=== PATIENT | female | born 1940 | race Caucasian/White ===

== ENCOUNTER 2018-09-05 06:06 | Inpatient (IN) | payer MEDICARE, BC ==
[2018-08-24 09:06] LABS: ABSOLUTE EOSINOPHILS 0.2 thou/uL (0.0-0.7); ABSOLUTE LYMPHOCYTES 1.7 thou/uL (0.8-5.3); ABSOLUTE MONOCYTES 0.6 thou/uL (0.0-1.2); ABSOLUTE NEUTROPHILS 5.8 thou/uL (1.6-8.1); BASOPHILS 0.5 %; EOSINOPHILS 2.8 %; HEMATOCRIT 42.6 % (37.0-47.0); HEMOGLOBIN 14.3 gm/dL (12.0-15.0); LYMPHOCYTES 20.7 %; MCH 29.4 pg (26.0-34.0); MCHC 33.5 g/dL (28.0-37.0); MCV 87.7 fL (80.0-100.0); MPV 8.7 fl. (7.2-11.1); NUCLEATED RBCS 0 /100WBC; PLATELET COUNT* 250 thou/uL (150-400); RBC 4.86 mil/uL (4.20-5.00); RDW-CV 13.4 % (10.5-14.5); WBC 8.4 thou/uL (4.0-11.0)
[2018-08-24 09:12] LABS: APTT 25.8 Seconds (25.0-31.3); INR 0.9; PROTIME 9.7 Seconds (9.20-11.50)
[2018-08-24 09:19] LABS: ALBUMIN 3.6 g/dL (3.4-5.0); CALCIUM 8.9 mg/dL (8.5-10.1); CREATININE 0.8 mg/dL (0.6-1.3); POTASSIUM 4.3 mmol/L (3.5-5.1); TOTAL BILIRUBIN 0.7 mg/dL (<0.1-1.0); TOTAL PROTEIN 7.1 g/dL (6.4-8.2)
[2018-08-24 10:05] LABS: ESR (SEDRATE) 5 mm/hr (0-30)
--- NOTE | 2018-08-24 14:50 | EKG ---
[place] [address] ELECTROCARDIOGRAM REPORT Name: CARLI WINTER Room: PRE IN [facility]#: [id number] Admission: Attend Phys: Skye Aguirre Discharge: Date of : 38 Report #: [id number] THIS REPORT FOR: //name// [facility] Test Date: 2018-08-24 Test Time: 09:14:13 Pat Name: CARLI WINTER Department: Room: Gender: F Seam Taper Machine: CHARLIE : 1940 Requested By: Matt Caro Order Number: [id number] Reading MD: Andrew Riley Measurements Intervals [place] Rate: 66 P: 72 MI: 159 QRS: 4 QRSD: 101 T: 48 QT: 410 QTc: 430 Interpretive Statements Sinus rhythm RSR' in V1 or V2, right VCD or RVH Compared to ECG 12/11/2016 18:25:19 Right ventricular hypertrophy now present RSR' in V1 or V2 now present Electronically Signed On 08-24-2018 14:50:15 CDT by Andrew Riley [email or web address] <ELECTRONICALLY SIGNED> By: Andrew Riley MD, [facility] 08/24/18 [facility]0 0914 0914 Andrew Riley MD, [facility] /EPI
[~2018-09-05] VITALS: Ht 170.2 cm; Wt 74.8 kg
--- NOTE | ~2018-09-05 | OP ---
[address] [address] OPERATIVE REPORT Name: MATTHEW WINTER Room: [address] M.R.#: [id number] Admission: 09/05/18 Attend Phys: Skye Aguirre Discharge: Date of : 38 Report #: [id number] THIS REPORT FOR: //name// CC: Renee Samson PREOPERATIVE DIAGNOSIS: Left hip degenerative joint disease, advanced. POSTOPERATIVE DIAGNOSIS: Left hip degenerative joint disease, advanced. PROCEDURE: Left total hip arthroplasty. SURGEON: Matt Caro D.O. ASSISTANTS: 1. Yariel Stratton D.O. 2. Darci Velasco D.O. ANESTHESIA: General. ANTIBIOTICS: Ancef IV preoperatively. FLUIDS: 1400 mL Lactated Ringer's. BLOOD LOSS: 300 mL. COMPLICATIONS: None. SPECIMENS: None. DRAINS: None. CONDITION: The patient is stable to PACU. IMPLANTS: Biomet G7 acetabular shell, size 52 mm with 36 mm high wall polyethylene size 14 Taperloc stem. A standard offset, standard length, 36 mm ceramic head, -3 adapter. INDICATIONS FOR PROCEDURE: The patient presented to [facility] for left total hip arthroplasty. I have seen her couple of times in clinic spread out well over a year. She was diagnosed with left hip degenerative joint disease. She tried and failed conservative modalities that involved oral medications, activity modification, strengthening, home exercises and compound cream. She wished to have total hip arthroplasty. I had a conversation with her talking about the plan for that surgery and risks and complications associated not only in clinic with her today as well. Please see clinic notes [facility] [address] [place] [address] OPERATIVE REPORT Name: MATTHEW WINTER Room: [address] M.R.#: [id number] Admission: 09/05/18 Attend Phys: Skye Aguirre Discharge: Date of : 38 Report #: [id number] for full details of our discussion at multiple visits. She gave verbal and written consent to proceed. DESCRIPTION OF PROCEDURE: I marked the left lower extremity in the presence of the operative team members, and everyone agreed this was correct. She was taken back to the operative suite where a briefing was performed indicating correct patient, procedure, site, antibiotics and then implants were present and sterile. All team members agreed. She was transferred over to the operative table in supine position, well-padded and secured. General anesthetic administered. The left lower extremity was sterilely prepped and draped in standard fashion. Timeout was performed indicating correct patient, procedure, site, antibiotics and that implants were present and sterile. All team members agreed. We marked out our incision for an anterior approach, scalpel through skin dissection, protecting any neurovascular structures including the lateral femoral cutaneous nerve visualized. The fascia incised this with a scalpel proximally and distally, bluntly found the interval between tensor and sartorius and visualized the lateral femoral circumflex vessels. They were cauterized with Aquamantys and electrocautery. Superior and inferior neck were visualized of the indirect head of the rectus and a #9 retractor placed over the brim of the acetabulum, cauterized the capsule with an Aquamantys and electrocautery used to perform an anterior capsulectomy. Repositioned retractors within the capsule protecting the neck one fingerbreadth above the lesser trochanter and we marked our cut. Oscillating saw was used to perform that cut in a napkin ring type fashion, removed the head. Head was sized on the back as 48. We cleaned up the acetabulum and had an excellent view of this. We began reaming sequentially starting at a [address] up to a 51. The 51 was reamed under direct visualization as well as the benefit of C-arm fluoroscopy. The 51 had excellent graft and we were down to good punctate bleeding bone. We dismissed C-arm, repositioned our retractors. Final size 52 G7 acetabular shell was thrown on to the back table. We thoroughly irrigated the acetabulum with normal saline and completely dried off and then implanted our acetabular shell in the correct amount of version and inclination confirmed by direct visualization and external aiming guide, and C-arm fluoroscopy showed that it was well seated. At that point in time, we then drilled, measured and placed appropriately lag screws in the safe zone. C-arm confirmed that the screws were appropriate. At that point in time, we cleaned off and irrigated with normal saline and then engaged our final polyethylene, 36 mm high wall was turned on to the backtable and then malleted into position with the high wall being in an anterolateral position. All tabs were fully engaged, and when we tried to lever it out, it would not be removed, confirming that it was well seated. We then turned our attention to the femur performing only one release where necessary, and using the aid of the table, we were able to gain access to the femur. Rat tail rasp and box osteotome began broaching sequentially starting at a size 4, [address] the way up to a size 14, working at excellent fit and stability. We therefore trialed off of this using the standard offset neck and -3, with 36 mm head, we reduced the hip. C-arm showed that our stem was [facility] [address] [place] [address] OPERATIVE REPORT Name: MATTHEW WINTER Room: [address] M.R.#: [id number] Admission: 09/05/18 Attend Phys: Skye Aguirre Discharge: Date of : 38 Report #: [id number]. Offset was appropriate. We externally rotated the table to well over 100 degrees. There is no instability. Shuck test was appropriate. Disengage the boot from the table and took the hip through range of motion including deep extension and external rotation. No instability whatsoever. Judging by the lesser trochanters on an AP pelvis x-ray, it would be slightly long; however, I do believe she is short based on her anatomy and the hemiarthroplasty on the other side knowing the true leg lengths would be impossible. At this point in time, we then dislocated the hip, repositioned the femur, removed all trial components, thoroughly irrigated with normal saline, checked the acetabulum for any debris or loose debris and reirrigated with normal saline. The final size 14 ____ into the femur, it sat at the exact same location as the trial. We therefore threw the final -36 mm ceramic head, engaged this on to the Rubin taper, malleted into position, confirmed by not being able to remove. At this point in time, all implants were in place. We reduced the hip again externally rotating over 100 degrees, not produce any instability. We removed the boot from the table and took through a range of motion throughout all planes. There was excellent stability including deep extension and external rotation. We reengaged the boot to the table, changed gloves, thoroughly irrigated with normal saline. Final C-arm images showed excellent implant positioning, no fracture or dislocation. Closed our fascial layer with #1 Vicryl with [id number] interrupted oversewn with #1 Stratafix, subcutaneous and skin closed with 2-0 Monocryl buried deep in a running subcuticular stitch with Stratafix and Dermabond glue over the skin. Debriefing was performed where we confirmed the procedure, blood loss and that all counts were correct and final. All team members agreed. Sterile silver impregnated dressing was applied. She was extubated and transferred off the operating table, taken to PACU, stable. POSTOPERATIVE COURSE AND EVALUATION: I spoke with her daughter addressing any questions she had. She was thankful for my time and effort. I offered to call the of the patient where the daughter wanted me to do that. She was resting in PACU with stable vital signs. Pain controlled, neurovascularly intact in both extremities and symmetric. Dressings were clean, dry and intact. PACU films showed stable prosthesis. No fracture or dislocation and components in good position. Leg lengths, she actually was sitting where she was in the preoperative area, which was right at about 1 cm, so we had reestablished her normal anatomy. DVT prophylaxis will be pharmacological and mechanical. PT, OT and weightbear as tolerated. Anterior hip with no precautions. By: [id number] Caro DO /cathie
[~2018-09-05 06:06] MED LIST: ANTIVERT25 MG PO; ASPIR 8181 MG PO; ENOXAPARIN40 MG/0.1 SUBQ; FISH OIL + VIT1 EACH PO; FLAX SEED OIL1000 MG PO; MOBIC15 MG PO; NORCO 5-325 TA1 EACH PO; ONDANSETRON HCL4 M2 PO; SIMVASTATIN40 MG PO; SUDAFED 12 HOU120 MG PO; TYLENOL EXTRA500 MG PO; VITAMIN D1000 UNI1 PO
[2018-09-05 06:35] VITALS: BP 144/77
[2018-09-05 13:00] VITALS: BP 125/44
[2018-09-05 16:30] VITALS: BP 115/44
[2018-09-05 20:30] VITALS: BP 121/49
[2018-09-06] VITALS: BP 115/45
[2018-09-06 04:04] VITALS: BP 116/41
[2018-09-06 04:15] LABS: HEMATOCRIT 39.3 % (37.0-47.0); HEMOGLOBIN 12.9 gm/dL (12.0-15.0)
[2018-09-06 07:30] VITALS: BP 121/85
[2018-09-06 15:39] VITALS: BP 130/79
[2018-09-06 19:56] VITALS: BP 129/52
[2018-09-07] VITALS: BP 139/70
[2018-09-07 04:00] VITALS: BP 129/52
[2018-09-07 04:01] LABS: HEMATOCRIT 38.3 % (37.0-47.0); HEMOGLOBIN 12.4 gm/dL (12.0-15.0)
[2018-09-07 07:39] VITALS: BP 132/56
[2018-09-07 09:27] VITALS: BP 132/56
[2018-09-07] MEDS ORDERED: OXYCODONE HCL 55 MG PO (13:05)
[2018-09-07] MEDS ORDERED: NORCO 5-325 TA1 EACH PO (13:07)
[2018-09-07] MEDS ORDERED: ELIQUIS2.5 MG PO (13:08)
== END 2018-09-07 14:20 | disposition home health service (06) | DRG 470 ==
LOC: M.TBA 06:06 → M.ORTHSURG 06:06 → M.PRE 06:37 → M.ORTHSURG 12:16
PROVIDERS: Orthopaedic Surgery; ADMIT Internal Medicine
PROC: 0SRB02Z Replacement of Left Hip Joint with Metal on Polyethylene Synthetic Substitute, Open Approach (ICD-10-PCS; principal; 2018-09-05)
DX: M16.12 Unilateral primary osteoarthritis, left hip (principal); G45.9 Transient cerebral ischemic attack, unspecified; M85.80 Other specified disorders of bone density and structure, unspecified site; Z82.49 Family history of ischemic heart disease and other diseases of the circulatory system; Z82.61 Family history of arthritis; Z90.710 Acquired absence of both cervix and uterus; Z79.82 Long term (current) use of aspirin; Z79.899 Other long term (current) drug therapy